=== PATIENT | female | born 1995 | race Caucasian/White ===

== ENCOUNTER 2022-10-25 08:39 | Emergency (ER) | payer OTHER, SELFPAY ==
[2022-10-25 08:46] VITALS: BP 162/107; PULSE 92; RESP 16; TEMP 36.2; O2SAT 98; BMI 33.8
--- NOTE | 2022-10-25 08:52 | ED.WOUNDLAC ---
HPI - Wound/Laceration General Time Seen by Provider: 08:52 Date Seen: 10/25/22 Chief Complaint: Laceration/Wound Stated Complaint: left hand finger laceration Time Seen by Provider: 10/25/22 09:23 Source: patient and RN notes reviewed Mode of arrival: ambulatory Limitations: no limitations History of Present Illness HPI narrative: Yamilet is a very pleasant 27-year-old female with up-to-date tetanus who comes to the emergency room today for evaluation regarding finger injury. Patient was at work at [employer] and she was using a box packer with a brand new blade. Unfortunately it slipped and she has a laceration to the distal aspect of her left 2nd or index finger. She denies any loss of of feeling. She is able to flex and extend without difficulty. No history of poorly healing wounds. Related Data Allergies Allergy/AdvReac Type Severity Reaction Status Date / Time amoxicillin Allergy Unknown Verified 10/25/22 08:49 azithromycin [From Zithromax] Allergy Unknown Verified 10/25/22 08:49 cefaclor [From Ceclor] Allergy Unknown Verified 10/25/22 08:49 [facility] Social History Smoking Status: Current every day smoker Do you use any of these nicotine containing products: E-Cigarettes and Vaping Products Second hand tobacco smoke exposure: No How often do you have a drink containing alcohol: monthly or less How often do you have six or more drinks on one occasion: Never AUDIT-C Alcohol total score: 1 Non-prescribed substance use: denies use Exam Narrative: Exam Narrative: Patient is alert and oriented. No acute distress. Patient has a laceration on the volar aspect 2nd finger distal phalanx transverse measuring approximately 1 cm. This is located approximately 8 mm distal to the D IP flexor. The wound has compromise epidermis dermis and partially compromises subcutaneous tissue. I do not see any deeper structures. No foreign bodies are noted. Patient has spared the lateral and medial aspect of the finger. She has full sensation. She can flex and extend. And she can flex against resistance. Procedure note. This area was cleansed and soaked. No foreign bodies were noted. 1% lidocaine with epinephrine less than 1 mL was infused into the finger with good anesthesia. Three sutures of 5 0 Ethilon were placed in interrupted fashion with good wound approximation. Patient tolerated procedure well. Capillary refill at the nail and distal aspect of the fingertip maintains good capillary refill. Const: Vital Signs, click to edit/add: Vital Signs - 24 hr 10/25/22 08:46 Temperature 97.2 F L Pulse Rate [Pulse Oximeter] 92 Respiratory Rate 16 Blood Pressure [Ri ght Upper Arm] 162/107 H Pulse Oximetry 98 Oxygen Delivery Me thod Room Air Course Vital Signs Vital signs: Initial Vital Signs Temperature 97.2 F L 10/25/22 08:46 Temperature Source Temporal Artery Scan 10/25/22 08:46 Pulse Rate 92 10/25/22 08:46 Respiratory Rate 16 10/25/22 08:46 Blood Pressure 162/107 H 10/25/22 08:46 Blood Pressure Mean 125 H 10/25/22 08:46 Blood Pressure Position Sitting 10/25/22 08:46 Pulse Oximetry 98 10/25/22 08:46 Oxygen Delivery Method Room Air 10/25/22 08:46 Vital Signs Temperature 97.2 F L 10/25/22 08:46 Pulse Rate 92 10/25/22 08:46 Respiratory Rate 16 10/25/22 08:46 Blood Pressure 162/107 H 10/25/22 08:46 Pulse Oximetry 98 10/25/22 08:46 Oxygen Delivery Method Room Air 10/25/22 08:46 Temperature 97.2 F L 10/25/22 08:46 Pulse Rate 92 10/25/22 08:46 Respiratory Rate 16 10/25/22 08:46 Blood Pressure 162/107 H 10/25/22 08:46 Pulse Oximetry 98 10/25/22 08:46 Oxygen Delivery Method Room Air 10/25/22 08:46 MDM - Wound/Laceration MDM Narrative Medical decision making narrative: 1. Laceration repair-suture removal in 10 days time. Monitor for signs and symptoms of infection. Leave open to air if not working. Otherwise cover with a bandage. 2. Disposition-home at this time. Recommend limited use of the left finger over the next 24 hours. Discharge Plan Discharge Clinical Impression: Laceration Patient Disposition: Home, Self-Care Condition: Improved Additional Instructions: Keep suture area clean and dry for 24 hours. You may remove the bandage tomorrow morning. You may wash your hands and shower but do not soak her finger such as when your doing the dishes, taking a bath. Suture removal in 10 days at your clinic. Monitor for infection. Seek medical attention for pus that is draining, increasing redness, fever chills and as needed. Stand Alone Forms: StatusPage Info Instructions
--- NOTE | 2022-10-25 08:55 | ED.NURSE ---
Finger soaking in hibiclens.
--- NOTE | 2022-10-25 09:37 | ED.NURSE ---
Bacitracin applied to lac on pt L index finger. Bandaid applied over lac.
== END 2022-10-25 09:38 | disposition home or self-care (01) ==
LOC: ED 09:36
PROVIDERS: Emergency Provider Family Medicine
DX: S61.211A Laceration without foreign body of left index finger without damage to nail, initial encounter (principal); W26.0XXA Contact with knife, initial encounter
CPT/HCPCS: 12001; 99283